=== PATIENT | female | born 1970 | race African-American/Black ===

== ENCOUNTER 2017-02-01 11:36 | Outpatient (RCR) | payer MEDICARE, OTHER ==
[~2017-02-01 11:36] MED LIST: ACETAMINOPHEN325 M1 ORAL; ASCORBIC ACID500 MG ORAL; NKM; NORCO 5-325 TA1 EACH ORAL; ZINC SULFATE220 M1 ORAL
== END 2017-02-11 | disposition home or self-care (01) ==
LOC: WCC 11:36
DX: L89.151 Pressure ulcer of sacral region, stage 1 (principal); G83.9 Paralytic syndrome, unspecified; Z88.6 Allergy status to analgesic agent; Z91.040 Latex allergy status; Z88.8 Allergy status to other drugs, medicaments and biological substances
CPT/HCPCS: G0463

== ENCOUNTER 2017-02-15 12:51 | Outpatient (RCR) | payer MEDICARE, OTHER | END 2017-03-14 | disposition home or self-care (01) | LOC: WCC 12:51 | DX: L89.151 Pressure ulcer of sacral region, stage 1 (principal); Z88.6 Allergy status to analgesic agent; Z91.040 Latex allergy status; G83.9 Paralytic syndrome, unspecified | CPT/HCPCS: 11042 ==

== ENCOUNTER 2017-08-30 12:00 | Outpatient (RCR) | payer MEDICARE, OTHER | END 2017-09-13 | disposition home or self-care (01) | LOC: WCC 12:00 | DX: L89.893 Pressure ulcer of other site, stage 3 (principal); G83.9 Paralytic syndrome, unspecified; Z88.6 Allergy status to analgesic agent; Z91.040 Latex allergy status; Z83.3 Family history of diabetes mellitus; Z82.49 Family history of ischemic heart disease and other diseases of the circulatory system | CPT/HCPCS: 11042; 11043 ==

== ENCOUNTER 2017-10-04 12:24 | Outpatient (RCR) | payer MEDICARE, OTHER | END 2017-10-14 | disposition home or self-care (01) | LOC: WCC 12:24 | DX: L89.893 Pressure ulcer of other site, stage 3 (principal); Z88.6 Allergy status to analgesic agent; Z91.040 Latex allergy status; G82.20 Paraplegia, unspecified | CPT/HCPCS: 11043 ==

== ENCOUNTER 2017-11-29 12:37 | Outpatient (RCR) | payer MEDICARE, OTHER | END 2017-12-12 | disposition home or self-care (01) | LOC: WCC 12:37 | DX: L89.893 Pressure ulcer of other site, stage 3 (principal); G83.9 Paralytic syndrome, unspecified; Z88.6 Allergy status to analgesic agent; Z91.040 Latex allergy status; Z99.3 Dependence on wheelchair; L89.154 Pressure ulcer of sacral region, stage 4 | CPT/HCPCS: 11043 ==